=== PATIENT | female | born 1985 | race Caucasian/White ===

== ENCOUNTER 2023-12-12 17:22 | Emergency (ER) | payer OTHER, SELFPAY ==
[2023-12-12 17:24] VITALS: BP 185/123; BMI 50.5
[2023-12-12 18:31] VITALS: BMI 51.6
--- NOTE | 2023-12-12 18:39 | ED.GENMED ---
History of Present Illness
General
Chief Complaint: Swelling
Source: patient
Exam Limitations: none
Time Seen by Provider: 12/12/23 18:31
Travel History
Have you had any contact with someone who has COVID-19?: No
Do you have any symptoms of coronavirus? Fever > 100 degrees, chills, cough, shortness of breath, sore throat, loss of taste or smell, muscle aches, or headache?: No
History of Present Illness
History of Present Illness:
This is a 38 year old female that comes in with c/o left leg swelling and pain. States that she noticed that her left leg in the calf area look a little more swollen then the right. States that she went and worked out today and she felt this
pulsation in the left calf area. States that she was googling and she felt she better get this checked out. Denies any injury that she can remember. States that she is doing different exercises. Denies any fever, chills, chest pain, SOB, abd pain,
nausea, vomiting, diarrhea, headache, dizziness, urinary burning.
Past History
Past History
ED Past Medical History: Hypercholesterolemia, Hypothyroidism, Psychiatric (Anxiety, Bipolar, Depression, Panic) and Other (PCOS, Dysmenorrhea, )
ED Past Surgical History: None and Gynecological (D&C)
Social History
Tobacco: Former smoker
Alcohol: None
Drug: None
Personal: Single
Living: with family
Employment: Other
Family History
Family History: Other
Review of Systems
Review of Systems
All Other Systems: ROS reviewed and negative except as documented in HPI and ROS
Constitutional: Reports no symptoms; Denies fever or chills
EENT: Reports no symptoms
Respiratory: Reports no symptoms; Denies cough or trouble breathing
Cardiac: Reports no symptoms; Denies chest pain
ABD/GI: Reports no symptoms; Denies abdominal pain, nausea, vomiting or diarrhea
: Reports no symptoms; Denies dysuria, frequency or urgency
Musculoskeletal: Reports other (Swelling and pain in the left calf)
Skin: Reports no symptoms
Neurological: Reports no symptoms; Denies dizzy or headache
Psychiatric: Reports no symptoms
Phy Exam
General Physical Exam
General Presentation: well appearing and no apparent distress
General age: appears stated age
General Skin: warm and dry
General Habitus: normal
General Mental: alert
General Hydration: appears well hydrated
ENT Exam
ENT Exam: TM's normal, pharynx normal and neck supple
Eye Exam
Eye Exam: EOMI
Cardiovascular Exam
Cardiovascular Exam: regular rate/rhythm, no murmur and normal peripheral pulses
Pulmonary Exam
Pulmonary Exam: lungs clear, no respiratory distress, no rales, chest non tender, no crackles, no rhonchi, no wheezing and no cough
Musculoskeletal Exam
Musculoskeletal Exam: full ROM, no edema and other (Negative for obvious swelling, Nontender to palpation)
Skin Exam
Skin Exam: normal color, warm/dry, no rash and no petechia
Psychiatric Exam
Psychiatric Exam: normal mood/affect
Course
Orders/Labs/Results
Orders:
Orders
12/12/23 17:28
US Legs, Left [US Periph Venous LOWER Ext LT] Urgent
Comment:
Reason For Exam: DVT?
Vital Signs
Initial and Last Documented VS:
Initial Vital Signs
Temp Pulse Resp BP
98.4 F 84 18 185/123
12/12/23 17:24 12/12/23 17:24 12/12/23 17:24 12/12/23 17:24
Last Documented Vital Signs
Temp Pulse Resp BP
98.4 F 84 18 185/123
12/12/23 17:24 12/12/23 17:24 12/12/23 17:24 12/12/23 17:24
MDM/Problems Addressed
Differential Diagnosis Includes:
DVT, Musculoskeletal pain, Contusion
MDM/Problems Addressed:
This is a 38 year old female that comes in with c/o left lower calf discomfort and slight swelling. States that she noticed this today as when she was at the Gym she felt this pulsation in the calf area. States that she does not remember any injury.
Will get US
Explained to patient that her US is normal. Patient is doing new exercises at the gym and this may be causing her pain. Patient to follow up as needed. Tylenol or Ibuprofen for pain.
Chronic conditions affecting care:
NA
Acute Exacerbation and/or Progression of Chronic Illness:
NA
*Radiology
Radiology exam reviewed: radiology read reviewed (US- No evidence of deep venous thrombosis of the left lower extremity. )
*Pulse Oximetry
Patient hypoxic: no
*EKG
Interpreted by ED Provider?: NA
Rate: EKG- N/A
*Moth Exterminator Interpretation
Rate: Moth Exterminator- N/A
*Critical Care Note
Total Time (30-74mins, 75-104mins- exclusive of procedures): Not Applicable
ED Attending Note
-
Portions of this chart may have been created with voice recognition software.� Occasional wrong word or��sound alike� substitutions may have occurred due to the inherent limitations of voice recognition software.
Discharge Plan
Departure
Patient Disposition: Home (Routine Discharge)
Date of Disposition: 12/12/23
Time of Disposition: 18:47
Patient with high blood pressure during this ER visit?: Yes
Condition: Good
Covid-19: Not Applicable
Discharge Problem:
Leg pain, left
Instructions: BLOOD PRESSURE
Prescriptions:
No Action
levothyroxine 88 MCG tablet
88 mcg PO DAILY
multivitamin [Daily Multi-Vitamin] 1 EACH tablet
1 tab PO DAILY
Calcium
1,000 mg PO DAILY
Fish Oil
1 tab PO DAILY
Magnesium
1 tab PO DAILY
Vitamin B Complex
1 tab PO DAILY
medroxyprogesterone 10 MG tablet
10 mg PO DAILY 9 Days Qty: 9 0RF
Activity Restrictions/Additional Instructions:
As discussed, your Ultrasound is negative for any blood clots. This may be just due to your exercising a new muscle group or you may have hit the leg and this has caused your discomfort. You may use Tylenol or Ibuprofen for any discomfort. Follow
up with the family doctor as needed. IF YOU HAVE ANY OTHER CONCERNS PLEASE RETURN TO THE EMERGENCY ROOM.
Interventions
Interventions:
*Risk Screen - Suicide Last Done: 12/12/23 17:24
*General Assessment Last Done: 12/12/23 18:28
*Neglect/Abuse Screening Last Done: 12/12/23 17:24
*ED COVID-19 Vaccine History Last Done: 12/12/23 17:24
ED- Cardiac Assessment Last Done: 12/12/23 18:31
ED- Pulmonary Assessment Last Done: 12/12/23 18:31
ED-Skin Assessment Last Done: 12/12/23 18:31
Discharge Date and Time
Print Language: NORWEGIAN
[2023-12-12 18:56] VITALS: BP 154/80
== END 2023-12-12 19:06 | disposition home or self-care (01) ==
LOC: EMR 17:22
PROVIDERS: EMERGENCY PHYSICIAN Emergency Medicine; FAMILY PHYSICIAN Family Medicine
DX: M79.605 Pain in left leg (principal); R03.0 Elevated blood-pressure reading, without diagnosis of hypertension; Z87.891 Personal history of nicotine dependence
CPT/HCPCS: 99284; 93971

== ENCOUNTER 2024-02-08 11:26 | Emergency (ER) | payer OTHER, SELFPAY ==
[2024-02-08 11:27] VITALS: BP 194/96
[2024-02-08] MEDS: MORPHINE SULFATE 4 MG IV (12:14)
[2024-02-08 12:18] VITALS: BP 130/81
[2024-02-08 12:26] LABS: % Basophils 0.4 % (0-2); % Eosinophils 0.9 % (0-6); % Immature Granulocytes 0.5 % (0-0.5); % Lymphocytes 14.1 % (20.5-51.1); % Monocytes 4.6 % (1.7-9.3); % Neutrophils 79.5 % (42.2-75.2); Absolute Eosinophils 0.1 10^3/uL (0-0.7); Absolute Immature Granulocytes 0.1 10^3/uL (0-0.05); Absolute Lymphocytes 1.6 10^3/uL (1.2-3.4); Absolute Monocytes 0.5 10^3/uL (0.1-0.6); Absolute Neutrophils 8.8 10^3/uL (1.4-6.5); Hemoglobin 10.2 g/dL (12.0-16.0); Mean Corp Hgb Conc. 32.9 g/dL (33.0-37.0); Mean Corpuscular Hgb 29.7 pg (27.0-31.0); Mean Corpuscular Volume 90.1 fL (81.0-99.0); Mean Platelet Volume 9.9 fL (7.4-10.4); Nucleated Red Blood Cells % 0 %; Platelet Count 319 10^3/uL (130-400); Red Blood Cell Count 3.44 10^6/uL (4.20-5.40); White Blood Cell Count 11.1 10^3/uL (4.8-10.8)
[2024-02-08 12:40] LABS: HCG, Serum Qualitative Screen Negative
[2024-02-08 12:42] LABS: Blood Urea Nitrogen 14 mg/dl (7-17); Calcium 9.1 mg/dl (8.4-10.2); Carbon Dioxide 26 mmol/L (22-30); Chloride 105 mmol/L (98-107); Glucose 133 mg/dl (70-99); Potassium 4.2 mmol/L (3.5-5.1); Sodium 138 mmol/L (135-145); eGFR > 60.00
[2024-02-08 12:49] VITALS: BP 137/76
[2024-02-08 13:00] VITALS: BP 142/80
--- NOTE | 2024-02-08 13:38 | ED.GENMED ---
History of Present Illness
General
Chief Complaint: Vaginal Bleeding
Source: patient and family
Time Seen by Provider: 02/08/24 11:47
Travel History
Have you had any contact with someone who has COVID-19?: No
Do you have any symptoms of coronavirus? Fever > 100 degrees, chills, cough, shortness of breath, sore throat, loss of taste or smell, muscle aches, or headache?: No
History of Present Illness
History of Present Illness:
38-year-old female with past medical history of dysmenorrhea, polycystic ovarian syndrome, Iram's thyroiditis presenting to the emergency department for evaluation of persistent vaginal bleeding that has been ongoing for the last few weeks.
Patient has a history of similar requiring D&C in the past. Completed a course of progesterone yesterday but bleeding continues. She had labs done yesterday through her [facility] and states her hemoglobin came back at 11. She states today still had
clotting and was concerned symptoms not improving so decided to she denies any fevers, chills, rigors. Scheduled for a ultrasound on the as part of workup with [facility] because she states she believes she may need a D&C again.
Past History
Past History
ED Past Medical History: Hypercholesterolemia, Hypothyroidism, Psychiatric (Anxiety, Bipolar, Depression, Panic) and Other (PCOS, Dysmenorrhea, )
ED Past Surgical History: None and Gynecological (D&C)
Social History
Tobacco: Former smoker
Alcohol: None
Drug: None
Personal: Single
Living: with family
Employment: Other
Family History
Family History: Other
Review of Systems
Review of Systems
All Other Systems: ROS reviewed and negative except as documented in HPI and ROS
Phy Exam
Physical Exam
Physical Exam:
GENERAL: Alert , appears uncomfortable
EYE: clear conjunctiva b/l
HEAD: NCAT
ENT: mmm.
CARDIAC: Regular rate and rhythm .
LUNGS: Clear breath sounds bilaterally, no acute respiratory distress, no wheezes/rales/rhonchi
ABDOMEN: Soft, tenderness diffusely in the lower abdomen but worse suprapubically, no r/g, no cvat
NEUROLOGICAL: Alert and oriented
SKIN: Warm and dry, skin intact.
MUSCULOSKELETAL: well perfused.
PSYCH: Normal and appropriate interaction.
Scores
Heart Failure Risk
Heart Failure Risk Score: Not Applicable
Heart Score for Chest Pain Patients
STEMI patient?: Not applicable
Withdrawal Assessment of Alcohol
Withdrawal Assessment Completed?: Not applicable
Course
Orders/Labs/Results
Orders:
Orders
02/08/24 11:48
Test Result ONCE
02/08/24 11:59
Morphine Sulfate 4 mg IV NOW STA
US Transvaginal [US Pelvis W Transvag Combined] Urgent
Comment:
Reason For Exam: DUB, previous D&C, failed progesterone
02/08/24 12:13
Basic Metabolic Panel Urgent
Complete Blood Count/With Diff Urgent
HCG, Serum Qualitative Screen Urgent
Abnormal Lab Results
02/08/24
12:13
WBC 11.1 H 10^3/uL
(4.8-10.8)
RBC 3.44 L 10^6/uL
(4.20-5.40)
Hgb 10.2 L g/dL
(12.0-16.0)
Hct 31.0 L %
(37.0-47.0)
MCHC 32.9 L g/dL
(33.0-37.0)
Abs Immat Gran (auto) 0.1 H 10^3/uL
(0-0.05)
Absolute Neuts (auto) 8.8 H 10^3/uL
(1.4-6.5)
Neutrophils % 79.5 H %
(42.2-75.2)
Lymphocytes % 14.1 L %
(20.5-51.1)
Glucose 133 H mg/dl
(70-99)
02/08/24 12:13
02/08/24 12:13
Vital Signs
Initial and Last Documented VS:
Initial Vital Signs
Temp Pulse Resp BP Pulse Ox
98.1 F 79 20 194/96 100
02/08/24 11:27 02/08/24 11:27 02/08/24 11:27 02/08/24 11:27 02/08/24 11:27
Last Documented Vital Signs
Temp Pulse Resp BP Pulse Ox
98.1 F 69 21 136/66 100
02/08/24 11:27 02/08/24 16:15 02/08/24 16:15 02/08/24 14:00 02/08/24 11:27
MDM/Problems Addressed
Differential Diagnosis Includes:
Dysfunctional uterine bleeding, fibroids, endometriosis
MDM/Problems Addressed:
38-year-old female presenting to the emergency department for evaluation of vaginal bleeding that has been ongoing for 3 weeks despite a course of progesterone. Patient had recent Pap smear which showed normal results. She does state that
previously from and endometrial scraping that there were some abnormal cells but patient was not able to further elaborate on this. Will check labs to evaluate her hemoglobin today as well as an ultrasound. Considering TXA as a possible treatment
for her DUB. Will discuss case with [facility] following completion of ultrasound for further disposition planning.
Chronic conditions affecting care: Other (Dysmenorrhea and DUB)
*Radiology
Radiology exam reviewed: radiology read reviewed
*Pulse Oximetry
Patient hypoxic: no
*Critical Care Note
Total Time (30-74mins, 75-104mins- exclusive of procedures): Not Applicable
Data Reviewed
Review of Other/Old Records Reveals: Labs
Source: patient
Patient Management
Discussion with other providers: Legal Job Titles
Escalation/DeEscalation of care consider admission/obs:
Patient's ultrasound shows thickened endometrium. Patient remains hemodynamically stable. I discussed the case with on-call [facility], Dr. Somers, and we decided to treat the patient with a 5-day course of TXA with close outpatient monitoring. Advised
patient get a repeat hemoglobin within a week. Return precautions discussed. Stable for discharge home.
ED Attending Note
-
Portions of this chart may have been created with voice recognition software.� Occasional wrong word or��sound alike� substitutions may have occurred due to the inherent limitations of voice recognition software.
Discharge Plan
Departure
Patient Disposition: Home (Routine Discharge)
Date of Disposition: 02/08/24
Time of Disposition: 16:14
Patient with high blood pressure during this ER visit?: Yes
Discharge Problem:
DUB (dysfunctional uterine bleeding)
Instructions: Bleeding Between Periods
Prescriptions:
New
tranexamic acid 650 mg tablet
1,300 mg PO TID 5 Days Qty: 30 0RF
No Action
levothyroxine 88 MCG tablet
88 mcg PO DAILY
multivitamin [Daily Multi-Vitamin] 1 EACH tablet
1 tab PO DAILY
Calcium
1,000 mg PO DAILY
Fish Oil
1 tab PO DAILY
Magnesium
1 tab PO DAILY
Vitamin B Complex
1 tab PO DAILY
medroxyprogesterone 10 MG tablet
10 mg PO DAILY 9 Days Qty: 9 0RF
Referrals:
Quiana Pride MD [Active] -
Heber Castillo DO [Family Provider] -
Interventions
Interventions:
*Risk Screen - Suicide Last Done: 02/08/24 11:27
*General Assessment Last Done: 02/08/24 11:27
*Neglect/Abuse Screening Last Done: 02/08/24 11:27
ED- Fall Risk Assessment Last Done: 02/08/24 16:38
*ED COVID-19 Vaccine History Last Done: 02/08/24 16:38
*Nursing Disposition Last Done: 02/08/24 16:38
ED-Female Genitourinary Assessment Last Done: 02/08/24 11:43
Discharge Date and Time
Discharge Date/Time: 02/08/24 16:39
Print Language: NIUEAN
[2024-02-08 14:00] VITALS: BP 136/66
== END 2024-02-08 16:39 | disposition home or self-care (01) ==
LOC: EMR 11:26
PROVIDERS: Physician Assistant Medical; EMERGENCY PHYSICIAN Emergency Medicine; FAMILY PHYSICIAN Family Medicine
DX: N93.8 Other specified abnormal uterine and vaginal bleeding (principal); R03.0 Elevated blood-pressure reading, without diagnosis of hypertension; E06.3 Autoimmune thyroiditis; E28.2 Polycystic ovarian syndrome; Z87.891 Personal history of nicotine dependence
CPT/HCPCS: 99284; 96374; 76830; 76856; 80048; 84703; 85025